=== PATIENT | female | born 1950 | race Caucasian/White ===

== ENCOUNTER 2023-04-14 10:49 | Observation (INO) | payer MEDICARE, OTHER ==
[2023-04-14] MEDS ORDERED: Ondansetron PF 4 MG/2 ML Vial ONE (11:47)
[2023-04-14] MEDS ORDERED: Morphine 4 MG/ML VIAL ONE (11:47)
[2023-04-14 12:07] LABS: #Eosinphils 0.1 10x3/uL (0.0-0.5); #Monocytes 0.4 10x3/uL (0.0-1.1); #Neutrophils 7.8 10x3/uL (1.5-8.4); %Basophils 0.4 % (0.0-2.0); %Eosinophils 1.2 % (0.0-6.0); %Lymphocytes 19.4 % (18.0-47.0); %Monocytes 4.1 % (0.0-10.0); %Neutrophils 74.1 % (40.0-75.0); Hematocrit 34.3 % (34.9-44.5); Hemoglobin 11.2 g/dL (12.0-15.5); Mean Corpuscular HGB CONC 32.7 g/dL (32.0-36.0); Mean Corpuscular Hemoglobin 30.4 pg (27.0-33.0); Platelet Count 240 10x3/uL (150-450); RBC Distribution Width 13.7 % (11.5-14.5); Red Blood Cell (RBC) Count 3.69 10x6/uL (3.90-5.03); White Blood Cell (WBC) Count 10.6 10x3/uL (3.5-10.5)
[2023-04-14 12:09] LABS: Bilirubin Neg (Negative); Blood, Urine 25 (Negative); Clarity Clear (Clear); Glucose, Urine (Dipstick) Normal (Negative); Ketone, Urine 5 mg/dL (Negative); Leukocyte 25 (Negative); Nitrite Negative (Negative); Protein, Urine (Dipstick) 100 mg/dl (Neg-Trace); Specific Gravity, Urine 1.005 (1.005-1.030); Urobilinogen Normal mg/dL (Less than 2)
[2023-04-14 12:28] LABS: Bacteria/HPF 1+ HPF (None Seen); CAUTI Indications for Culture Pelvic or flank pain; RBC/HPF 0-3 HPF (0-3); Squamous Epithelial 0-3 HPF (0-3); WBC/HPF 0-3 HPF (0-3)
[2023-04-14 12:29] LABS: Mucous/LPF Rare LPF (<2+); Urine Culture Reflex No No
[2023-04-14 12:30] LABS: ALT (SGPT) 284 U/L (8-55); AST (SGOT) 212 U/L (5-34); Albumin 4.5 g/dL (3.4-4.8); Alkaline Phosphatase 274 U/L (40-110); Anion Gap 19 mmol/L (10-20); BUN (Urea Nitrogen) 28 mg/dL (9.8-20.1); Bilirubin, Total 0.9 mg/dL (0.2-1.2); Calc. Creatinine Clearance 0 mL/min (70-130); Calcium 9.7 mg/dL (7.8-10.44); Carbon Dioxide 21 mmol/L (23-31); Chloride 105 mmol/L (98-107); Estimated GFR 38; Globulin 2.8 g/dL (2.4-3.5); Glucose 143 mg/dL (83-110); Lipase 42 U/L (8-78); Potassium 4.2 mmol/L (3.5-5.1); Protein, Total 7.3 g/dL (5.8-8.1); Sodium 141 mmol/L (136-145)
[2023-04-14 12:32] LABS: Troponin I Less than 0.010 ng/mL (< 0.028)
[2023-04-14] MEDS ORDERED: Piperacillin/Tazobactam 3.375 GM VIAL ONE (14:05)
[2023-04-14] MEDS ORDERED: Iopamidol 300 61% 100 ML VIAL FS ONE (14:32)
[2023-04-14] MEDS ORDERED: Ondansetron ODT 4 MG TAB PO PRN (14:35)
[2023-04-14] MEDS ORDERED: Acetaminophen 325 MG TAB PO PRN (14:35)
[2023-04-14] MEDS ORDERED: HYDROcodone/Acetaminophen 5/325 mg Tablet PO PRN (14:35)
[2023-04-14] MEDS ORDERED: Dextrose 5% in Water 1,000 ML IV PRN (14:38)
[2023-04-14] MEDS ORDERED: Insulin Regular 300 UNITS/3 ML VIAL SC PRN (14:38)
[2023-04-14] MEDS ORDERED: Dextrose 50% Abboject 50 ML SYRINGE SLOW IVP PRN (14:38)
[2023-04-14] MEDS ORDERED: Glucagon 1 MG/ML KIT IM PRN (14:38)
[2023-04-14 14:55] LABS: Lactic Acid 1.1 mmol/L (0.5-2.2)
[2023-04-14] MEDS ORDERED: traMADol HCl 50 MG TAB PO PRN (15:12)
[2023-04-14 16:41] VITALS: BMI 39.7
[2023-04-14] MEDS: Sodium Chloride 0.9% 1,000 ML IV SCH (17:00)
[2023-04-14] MEDS: Carvedilol 25 MG TAB PO SCH (17:02)
[2023-04-14] MEDS ORDERED: Indomethacin 50 MG SUPP PR SCH (18:15)
[2023-04-14] MEDS ORDERED: LevoFLOXacin 500 mg/D5W 500 MG in Premix Bag 1 BAG IVPB SCH (18:45)
[2023-04-14] MEDS: Famotidine/PF 20 mg/2ml Vial SLOW IVP SCH (20:25)
[2023-04-14] MEDS: Atorvastatin Calcium 40 MG TAB PO SCH (20:25)
[2023-04-15 05:01] LABS: #Eosinphils 0.2 10x3/uL (0.0-0.5); #Monocytes 0.6 10x3/uL (0.0-1.1); #Neutrophils 4.7 10x3/uL (1.5-8.4); %Basophils 0.3 % (0.0-2.0); %Eosinophils 2.7 % (0.0-6.0); %Lymphocytes 28.8 % (18.0-47.0); %Monocytes 7.6 % (0.0-10.0); %Neutrophils 60.1 % (40.0-75.0); Hematocrit 31.8 % (34.9-44.5); Hemoglobin 10.1 g/dL (12.0-15.5); Mean Corpuscular HGB CONC 31.8 g/dL (32.0-36.0); Mean Corpuscular Hemoglobin 30.4 pg (27.0-33.0); Mean Corpuscular Volume 95.8 fl (81.6-98.3); Mean Platelet Volume 10.8 fl (7.4-10.4); Platelet Count 195 10x3/uL (150-450); RBC Distribution Width 13.9 % (11.5-14.5); Red Blood Cell (RBC) Count 3.32 10x6/uL (3.90-5.03); White Blood Cell (WBC) Count 7.8 10x3/uL (3.5-10.5)
[2023-04-15 05:07] LABS: ALT (SGPT) 174 U/L (8-55); AST (SGOT) 97 U/L (5-34); Albumin 3.6 g/dL (3.4-4.8); Alkaline Phosphatase 197 U/L (40-110); Anion Gap 14 mmol/L (10-20); BUN (Urea Nitrogen) 19 mg/dL (9.8-20.1); Bilirubin, Total 0.6 mg/dL (0.2-1.2); Calc. Creatinine Clearance 59 mL/min (70-130); Calcium 8.8 mg/dL (7.8-10.44); Carbon Dioxide 21 mmol/L (23-31); Chloride 109 mmol/L (98-107); Estimated GFR 45; Globulin 2.6 g/dL (2.4-3.5); Glucose 103 mg/dL (83-110); Lipase 56 U/L (8-78); Potassium 3.8 mmol/L (3.5-5.1); Protein, Total 6.2 g/dL (5.8-8.1); Sodium 140 mmol/L (136-145)
[2023-04-15] MEDS: Carvedilol 25 MG TAB PO SCH ×2 (06:38→17:30)
[2023-04-15] MEDS: Sodium Chloride 0.9% 1,000 ML IV SCH ×3 (06:39→17:35)
[2023-04-15] MEDS: Lisinopril 20 MG TAB PO SCH ×2 (08:51→17:30)
[2023-04-15] MEDS: Hydrochlorothiazide 25 MG TAB PO SCH (08:51)
[2023-04-15] MEDS ORDERED: traMADol HCl 50 MG TAB PO PRN (16:10)
[2023-04-15] MEDS ORDERED: Morphine 2 MG/ML VIAL SLOW IVP PRN (16:14)
[2023-04-15] MEDS: Atorvastatin Calcium 40 MG TAB PO SCH (20:42)
[2023-04-15] MEDS: Famotidine/PF 20 mg/2ml Vial SLOW IVP SCH (20:43)
[2023-04-16 03:09] LABS: #Monocytes 0.3 10x3/uL (0.0-1.1); #Neutrophils 7.4 10x3/uL (1.5-8.4); %Basophils 0.2 % (0.0-2.0); %Lymphocytes 17.4 % (18.0-47.0); %Monocytes 3.6 % (0.0-10.0); Hemoglobin 10.2 g/dL (12.0-15.5); Mean Corpuscular HGB CONC 31.9 g/dL (32.0-36.0); Mean Corpuscular Hemoglobin 30.3 pg (27.0-33.0); Mean Platelet Volume 11.1 fl (7.4-10.4); Platelet Count 217 10x3/uL (150-450); RBC Distribution Width 13.7 % (11.5-14.5); Red Blood Cell (RBC) Count 3.37 10x6/uL (3.90-5.03); White Blood Cell (WBC) Count 9.4 10x3/uL (3.5-10.5)
[2023-04-16 03:43] LABS: ALT (SGPT) 129 U/L (8-55); AST (SGOT) 55 U/L (5-34); Albumin 3.6 g/dL (3.4-4.8); Alkaline Phosphatase 217 U/L (40-110); Anion Gap 17 mmol/L (10-20); BUN (Urea Nitrogen) 18 mg/dL (9.8-20.1); Bilirubin, Total 0.5 mg/dL (0.2-1.2); Calc. Creatinine Clearance 63 mL/min (70-130); Calcium 8.6 mg/dL (7.8-10.44); Carbon Dioxide 16 mmol/L (23-31); Chloride 110 mmol/L (98-107); Estimated GFR 48; Globulin 2.7 g/dL (2.4-3.5); Glucose 123 mg/dL (83-110); Protein, Total 6.3 g/dL (5.8-8.1); Sodium 139 mmol/L (136-145)
[2023-04-16] MEDS: Sodium Chloride 0.9% 1,000 ML IV SCH (06:45)
[2023-04-16] MEDS: Lisinopril 20 MG TAB PO SCH (08:38)
[2023-04-16] MEDS: Hydrochlorothiazide 25 MG TAB PO SCH (08:39)
[2023-04-16] MEDS: Carvedilol 25 MG TAB PO SCH (08:39)
[2023-04-16] MEDS ORDERED: Amlodipine 10 MG TAB PO SCH (11:00)
[2023-04-16 12:37] VITALS: BP 118/56; TEMP 98.7
[2023-04-17] MEDS ORDERED: Amlodipine 10 MG TAB PO SCH (09:00)
== END 2023-04-16 13:46 | disposition home or self-care (01) ==
LOC: CSHERS 10:49 → CSHTELE 14:23
PROVIDERS: ADMIT Family Medicine; ATTEND Family Medicine
PROC: 0FC98ZZ Extirpation of Matter from Common Bile Duct, Via Natural or Artificial Opening Endoscopic (ICD-10-PCS; principal; 2023-04-15)
DX: K80.50 Calculus of bile duct without cholangitis or cholecystitis without obstruction (principal); N17.9 Acute kidney failure, unspecified; E11.9 Type 2 diabetes mellitus without complications; R07.81 Pleurodynia; I10 Essential (primary) hypertension; R74.01 Elevation of levels of liver transaminase levels; Z90.49 Acquired absence of other specified parts of digestive tract; Z96.659 Presence of unspecified artificial knee joint; Z79.899 Other long term (current) drug therapy; Z79.84 Long term (current) use of oral hypoglycemic drugs; Z88.6 Allergy status to analgesic agent; Z91.018 Allergy to other foods
CPT/HCPCS: 43262; 43264; 71045; 74177; 74330; 80053 ×3; 81001; 82962 ×3; 83605; 83690 ×2; 84484; 85025 ×3; 87040; 93005 ×2; 94760; 94799; 96361; 96365; 96375 ×2; 97116; 99285; G0378 ×3; 36415; 36416; 93010; J2270; J2405; J2543; J7050; Q9967; S0028

== ENCOUNTER 2023-04-19 15:32 | Emergency (ER) | payer MEDICARE ==
[2023-04-19] MEDS ORDERED: Ondansetron PF 4 MG/2 ML Vial ONE (16:35)
[2023-04-19 17:34] LABS: #Eosinphils 0.1 10x3/uL (0.0-0.5); #Monocytes 0.8 10x3/uL (0.0-1.1); #Neutrophils 7.6 10x3/uL (1.5-8.4); %Basophils 0.3 % (0.0-2.0); %Eosinophils 0.9 % (0.0-6.0); %Lymphocytes 25.2 % (18.0-47.0); %Monocytes 7.2 % (0.0-10.0); %Neutrophils 65.5 % (40.0-75.0); Hemoglobin 10.1 g/dL (12.0-15.5); Mean Corpuscular HGB CONC 32.6 g/dL (32.0-36.0); Mean Corpuscular Hemoglobin 30.5 pg (27.0-33.0); Mean Corpuscular Volume 93.7 fl (81.6-98.3); Mean Platelet Volume 11.1 fl (7.4-10.4); Platelet Count 218 10x3/uL (150-450); Red Blood Cell (RBC) Count 3.31 10x6/uL (3.90-5.03); White Blood Cell (WBC) Count 11.7 10x3/uL (3.5-10.5)
[2023-04-19 18:04] LABS: ALT (SGPT) 48 U/L (8-55); AST (SGOT) 21 U/L (5-34); Albumin 3.8 g/dL (3.4-4.8); Alkaline Phosphatase 146 U/L (40-110); Anion Gap 16 mmol/L (10-20); BUN (Urea Nitrogen) 31 mg/dL (9.8-20.1); Bilirubin, Total 0.6 mg/dL (0.2-1.2); Calc. Creatinine Clearance 0 mL/min (70-130); Calcium 9.2 mg/dL (7.8-10.44); Carbon Dioxide 17 mmol/L (23-31); Chloride 108 mmol/L (98-107); Estimated GFR 27; Globulin 2.7 g/dL (2.4-3.5); Glucose 99 mg/dL (83-110); Lipase 50 U/L (8-78); Potassium 3.9 mmol/L (3.5-5.1); Protein, Total 6.5 g/dL (5.8-8.1); Sodium 137 mmol/L (136-145)
[2023-04-19 20:33] LABS: Anion Gap 14 mmol/L (10-20); BUN (Urea Nitrogen) 28 mg/dL (9.8-20.1); Calc. Creatinine Clearance 0 mL/min (70-130); Calcium 8.4 mg/dL (7.8-10.44); Carbon Dioxide 18 mmol/L (23-31); Chloride 112 mmol/L (98-107); Estimated GFR 32; Glucose 96 mg/dL (83-110); Potassium 3.4 mmol/L (3.5-5.1); Sodium 141 mmol/L (136-145)
== END 2023-04-19 21:16 | disposition home or self-care (01) ==
LOC: CSHERS 15:32
DX: R11.2 Nausea with vomiting, unspecified (principal); E86.0 Dehydration; N17.9 Acute kidney failure, unspecified; I10 Essential (primary) hypertension; E11.9 Type 2 diabetes mellitus without complications
CPT/HCPCS: 36415; 80053; 83605; 83690; 85025; 96361; 96374; J2405